=== PATIENT | female | born 1970 | race Caucasian/White ===

== ENCOUNTER 2021-09-04 05:33 | Emergency (ER) | payer BC ==
[~2021-09-04] VITALS: Ht 144.8 cm; Wt 52.3 kg
[2021-09-04 05:40] VITALS: BP 134/87
[2021-09-04] MEDS ORDERED: MORPHINE SULFATE 4 MG/ML SYR IM ONE (06:35)
[2021-09-04] MEDS ORDERED: ONDANSETRON 4 MG ODT PO ONE (06:35)
[2021-09-04 06:59] VITALS: BP 134/87
== END 2021-09-04 06:59 | disposition home or self-care (01) ==
LOC: MED 05:33
DX: G89.29 Other chronic pain (principal); M54.50 Low back pain, unspecified; F31.9 Bipolar disorder, unspecified; Z88.0 Allergy status to penicillin; Z88.1 Allergy status to other antibiotic agents; Z88.8 Allergy status to other drugs, medicaments and biological substances
CPT/HCPCS: 96372; 99283; J2270; Q0162

== ENCOUNTER 2021-10-01 14:27 | Emergency (ER) | payer BC ==
[~2021-10-01] VITALS: Ht 144.8 cm; Wt 52.2 kg
[2021-10-01 14:59] VITALS: BP 130/71
[2021-10-01] MEDS ORDERED: FAMO-92 PO (15:36)
[2021-10-01] MEDS ORDERED: HYDR-637 PO (15:36)
[2021-10-01] MEDS ORDERED: PRED20TA5 PO (15:36)
[2021-10-01] MEDS ORDERED: MAG-27 PO (15:36)
[2021-10-01] MEDS ORDERED: DICYCLOMINE HCL LIQUID 20 MG, ALUMINUM HYD/MAG/SIMETHICONE 30 ML, LIDOCAINE VISCOUS 2% ... PO ONE ×3 (16:05)
[2021-10-01] MEDS ORDERED: DICYCLOMINE HCL LIQUID 10 MG/5 ML UDC ONE (16:17)
[2021-10-01] MEDS ORDERED: ALUMINUM HYD/MAG/SIMETHICONE 30 ML UDC ONE (16:17)
[2021-10-01 16:40] VITALS: BP 130/71
--- NOTE | 2021-10-01 16:40 | NUR ---
Patient discharged with v/s stable. Written and verbal after care instructions given and explained. Patient alert, oriented and verbalized understanding of instructions. Ambulatory with steady gait. All questions addressed prior to discharge. ID band removed. Patient advised to follow up with PMD. Rx of FAMOTIDINE, HYDROXYZINE HCL, BHAVESH HYDROX, PREDINSONE given. Patient educated on indication of medication including possible reaction and side effects. Opportunity to ask questions provided and answered.
== END 2021-10-01 16:40 | disposition home or self-care (01) ==
LOC: MED 14:27
DX: L29.9 Pruritus, unspecified (principal); K21.9 Gastro-esophageal reflux disease without esophagitis; I10 Essential (primary) hypertension; Z98.890 Other specified postprocedural states; Z88.0 Allergy status to penicillin; Z88.1 Allergy status to other antibiotic agents
CPT/HCPCS: 99283

== ENCOUNTER 2021-10-18 15:17 | Emergency (ER) | payer OTHER, BC ==
[~2021-10-18] VITALS: Ht 144.8 cm; Wt 52.2 kg
[~2021-10-18 15:17] MED LIST: FAMO-92 PO; HYDR-637 PO; MAG-27 PO; PRED20TA5 PO
[2021-10-18 15:42] VITALS: BP 127/62
--- NOTE | 2021-10-18 16:06 | NUR ---
PATIENT ELOPED FROM FACILITY. DISCHARGE INSTRUCTIONS NOT GIVEN TO PATIENT. DR. HARRISON NOTIFIED.
== END 2021-10-18 16:06 | disposition left against medical advice (07) ==
LOC: MED 15:17
DX: R21 Rash and other nonspecific skin eruption (principal); I10 Essential (primary) hypertension; Z88.0 Allergy status to penicillin; Z88.1 Allergy status to other antibiotic agents; Z88.8 Allergy status to other drugs, medicaments and biological substances; Z79.899 Other long term (current) drug therapy
CPT/HCPCS: 99281

== ENCOUNTER 2021-12-26 20:50 | Emergency (ER) | payer OTHER, BC ==
[~2021-12-26] VITALS: Ht 144.8 cm; Wt 48.5 kg
[2021-12-26 21:10] VITALS: BP 125/61
--- NOTE | 2021-12-26 21:16 | NUR ---
PT GIVEM URINE SPECIMEN CUP AND TAKEN TO BED 12.
[2021-12-26] MEDS ORDERED: ONDANSETRON 4 MG/2 ML VIAL IVP ONE (21:30)
[2021-12-26] MEDS ORDERED: KETOROLAC 30 MG/ML VIAL IVP ONE (21:30)
[2021-12-26] MEDS ORDERED: NACL 0.9% 1,000 ML IV SCH (21:30)
--- NOTE | 2021-12-26 21:46 | NUR ---
51 Y/O FEMALE BIB SELF, C/O NAUSEA X1 WEEK. PATIENT PRESENTS TO ED WITH CONSTIPATION AND NAUSEA WITH BURNING ABDOMINAL SENSATION. PT STATES SHE HAS BEEN NAUSEOUS FOR 1 WEEK REGARDLESS OF WHAT SHE EATS OR MEDS SHE TAKES. SHE HAS ALSO BEEN RECIEVING EPIDURALS FOR HERNIATED DISC LATELY, SCHEDULED FOR SURGICAL DISC REPAIR ON Dec. DENIES V/D; SKIN IS PINK/WARM/DRY; AAOX4 WITH EVEN AND STEADY GAIT; LUNGS CLEAR BL; HR EVEN AND REGULAR; PT DENIES ANY FEVER, CP, SOB, OR COUGH AT THIS TIME; PATIENT STATES PAIN OF 9/10 AT THIS TIME; VSS; PATIENT POSITIONED FOR COMFORT; HOB ELEVATED; BEDRAILS UP X1; BED DOWN. ER MD MADE AWARE OF PT STATUS. PT STATES SHE HAS RECENTLY STOPPED HER CHRONIC USE OF IBUPROFEN. HX: HERNIATED LUMBAR DISC, HTN, ARTHRITIS, GASTRIC BYPASS ALL: AUGMENTIN, PCN MED: NEXIUM, LISINOPRIL, LAMOTIGRINE, NORCO, FLEXARIL
--- NOTE | 2021-12-26 22:10 | NUR ---
BLOOD COLLECTED AND WALKED TO LAB
[2021-12-26 22:29] LABS: BASOPHILS # (AUTO) 0.1 K/uL (0.00-0.22); EOSINOPHILS # (AUTO) 0.1 K/uL (0-0.4); HEMATOCRIT 35.7 % (36-48); LYMPHOCYTES # (AUTO) 1.3 K/uL (2.5-16.5); LYMPHOCYTES % (AUTO) 21.4 % (20.5-51.1); MEAN CORPUSCULAR HEMOGLOBIN 29 pg (27-31); MEAN CORPUSCULAR HGB CONC 34 g/dL (33-37); MEAN CORPUSCULAR VOLUME 85.7 fL (80-94); MONOCYTES # (AUTO) 0.4 K/uL (0.8-1.0); MONOCYTES % (AUTO) 7.2 % (1.7-9.3); NEUTROPHILS # (AUTO) 4.3 K/uL (1.8-7.7); NEUTROPHILS % (AUTO) 69.4 % (42.2-75.2); PLATELET COUNT (AUTO) 525 K/uL (140-450); RED BLOOD CELL COUNT(AUTO) 4.17 MIL/uL (4.20-5.40); RED CELL DISTRIBUTION WIDTH 15.9 % (11.6-13.7); WHITE BLOOD COUNT (AUTO) 6.2 K/uL (4.8-10.8)
[2021-12-26] MEDS ORDERED: ALUMINUM HYD/MAG/SIMETHICONE 30 ML UDC PO ONE (22:30)
[2021-12-26] MEDS ORDERED: DOCUSATE SODIUM 100 MG GELCAP PO ONE (22:30)
[2021-12-26 22:42] LABS: ALBUMIN 3.6 g/dL (3.4-5.0); ANION GAP 12.9 (8-16); CARBON DIOXIDE 27.3 mmol/L (21-32); CREATININE 0.7 mg/dL (0.6-1.3); POTASSIUM 5.2 mmol/L (3.5-5.1); TOTAL BILIRUBIN 0.4 mg/dL (0.0-1.0)
[2021-12-27] MEDS ORDERED: ALUM355S59 PO (00:36)
[2021-12-27] MEDS ORDERED: DOCU-299 PO (00:36)
[2021-12-27 00:43] VITALS: BP 132/80
--- NOTE | 2021-12-27 00:43 | NUR ---
Patient discharged with v/s stable. Written and verbal after care instructions given and explained. Patient alert, oriented and verbalized understanding of instructions. Ambulatory with steady gait. All questions addressed prior to discharge. ID band removed. Patient advised to follow up with PMD. Rx of Mag Hydrox/Al Hydrox/Simeth and Docusate Sodium given. Patient educated on indication of medication including possible reaction and side effects. Opportunity to ask questions provided and answered. VSS, A/OX4, UNLABORED BREATHING, AMBULATORY, AND CALM DEMEANOR.
== END 2021-12-27 00:43 | disposition home or self-care (01) ==
LOC: MED 20:50
DX: R10.13 Epigastric pain (principal); R11.0 Nausea; I10 Essential (primary) hypertension; Z98.84 Bariatric surgery status; Z88.0 Allergy status to penicillin; Z88.1 Allergy status to other antibiotic agents; Z88.8 Allergy status to other drugs, medicaments and biological substances; Z79.899 Other long term (current) drug therapy
CPT/HCPCS: 36415; 80053; 81002; 81025; 83690; 85025; 96361; 96374; 96375; 99284; J1885; J2405; J7030